=== PATIENT | male | born 1990 | race Caucasian/White ===

== ENCOUNTER 2020-11-29 19:50 | Emergency (ER) | payer MEDICAID ==
[2016-07-18 07:45] VITALS: BP 121/58
[~2020-11-29] VITALS: Ht 182.9 cm; Wt 71.0 kg
[~2020-11-29 19:50] MED LIST: AZIT1PAC PO; IBUP800T19 PO; SULF1TAB24 PO
--- NOTE | 2020-11-29 20:07 | PHYS DOC ---
Past History Past Medical History: No Pertinent History Past Surgical History: No Surgical History Alcohol Use: Rarely Drug Use: Marijuana General Adult EDM: Chief Complaint: EYE PROBLEMS HPI: HPI: "... I was breaking up some sand stone.. with a sledge hammer.. for a patio.. Missed about 8:00.. but I chunk of the sand stone flew up and hit me in my Lt. eye...".. " It is still bugging me..." Patient is a 30 year old male who presents with above hx and complaints of injury to left eye this morning at 0800 hours. Patient was using sledgehammer to break up [place].. A piece fragmented and hit him and he left eye. Patient is visual acuity is 20/20 right eye 20/40 left eye and 20/20 both eyes. Patient has obvious abrasion left lower quadrant of cornea. Fluorescein uptake noted. Extraocular muscles intact. No consensual pain with light. Slight flare. No limbus injection. Patient tetanus is up-to-date. No recent travel. No history of significant ill contacts. Normally wears protective lenses when working but not today. No history immunosuppression Review of Systems: Review of Systems: Constitutional: Denies fever or chills Eyes: Denies change in visual acuity. The patient complaint left eye injury HENT: Denies nasal congestion or sore throat Respiratory: Denies cough or shortness of breath Cardiovascular: Denies chest pain or edema GI: Denies abdominal pain, nausea, vomiting, bloody stools or diarrhea : Denies dysuria Musculoskeletal: Denies back pain or joint pain Integument: Denies rash Neurologic: Denies headache, focal weakness or sensory changes Endocrine: Denies polyuria or polydipsia Lymphatic: Denies swollen glands Psychiatric: Denies depression or anxiety Family History: Family History: Noncontributory Current Medications: Current Meds: See nursing for home meds Allergies: Allergies: Allergies Coded Allergies Type Severity Reaction Last Updated Verified Penicillins Allergy Unknown 03/04/14 No Physical Exam: PE: Constitutional: Well developed, well nourished, mild distress, non-toxic appearance. [] HENT: Normocephalic, atraumatic, bilateral external ears normal, oropharynx moist, no oral exudates, nose normal. [] Eyes: PERRLA, EOMI, conjunctiva normal, no discharge. [] Except findings in left eye as per HPI Neck: Normal range of motion, no tenderness, supple, no stridor. [] Cardiovascular:Heart rate regular rhythm, no murmur [] Lungs & Thorax: Bilateral breath sounds to apex auscultation [] Abdomen: Bowel sounds normal, soft, no tenderness, no masses, no pulsatile masses. [] Skin: Warm, dry, no erythema, no rash. [] Back: No tenderness, no CVA tenderness. [] Extremities: No tenderness, no cyanosis, no clubbing, ROM intact, no edema. [] Neurologic: Alert and oriented X 3, normal motor function, normal sensory functi on, no focal deficits noted. [] Psychologic: Affect normal, judgement normal, mood normal. [] EKG: EKG: [] Radiology/Procedures: Radiology/Procedures: [] Heart Score: C/O Chest Pain: N/A Risk Factors: Risk Factors: DM, Current or recent (<one month) smoker, HTN, HLP, family history of CAD, obesity. Risk Scores: Score 0 - 3: 2.5% MACE over next 6 weeks - Discharge Home Score 4 - 6: 20.3% MACE over next 6 weeks - Admit for Clinical Observation Score 7 - 10: 72.7% MACE over next 6 weeks - Early Invasive Strategies Course & Med Decision Making: Course & Med Decision Making Pertinent Labs and Imaging studies reviewed. (See chart for details) Do not rub eyes. Take Tylenol and ibuprofen for pain. Follow-up primary care. Follow-up with surgical garment inspector. Use a very small amount erythromycin ointment 4 times a day. May use Toradol eyedrops 4 times a day for pain. Return if any concerns. Must follow up. Impression: 1. Lt. Cornea Abrasion [] Dragon Disclaimer: Dragon Disclaimer: This electronic medical record was generated, in whole or in part, using a voice recognition dictation system. Departure Departure: Referrals: PCP,NO (PCP) Rodney Disclaimer This chart was dictated in whole or in part using Voice Recognition software in a busy, high-work load, and often noisy Emergency Department environment. It may contain unintended and wholly unrecognized errors or omissions. VITOR RAINEY MD Nov 29, 2020 20:07
[2020-11-29] MEDS: ERYTHROMYCIN 0.5% OPHTH OINTMENT 1GM TUBE. OS ONE (20:15)
[2020-11-29] MEDS: KETOROLAC TROMETHAMINE 0.5% OPHTH SOLUTION BOTTLE. OS ONE (20:15)
[2020-11-29] MEDS: FLUORESCEIN 1MG EYE STRIP. OU ONE (20:15)
[2020-11-29] MEDS: TETRACAINE 0.5% OPHTH SOLUTION 4ML BOTTLE. OU ONE (20:15)
[2020-11-29] MEDS: HYDROcodon/IBUPROFEN 7.5/200MG 1 TAB TABLET PO ONE (20:25)
== END 2020-11-29 20:37 | disposition home or self-care (01) ==
LOC: ER 19:50
DX: S05.02XA Injury of conjunctiva and corneal abrasion without foreign body, left eye, initial encounter (principal); F12.10 Cannabis abuse, uncomplicated; Z88.0 Allergy status to penicillin; X58.XXXA Exposure to other specified factors, initial encounter; Y93.89 Activity, other specified; Y92.89 Other specified places as the place of occurrence of the external cause; Y99.8 Other external cause status
CPT/HCPCS: 99284-25

== ENCOUNTER 2021-06-30 10:08 | Emergency (ER) | payer MEDICAID ==
[~2021-06-30] VITALS: Ht 182.9 cm; Wt 74.0 kg
[2021-06-30 10:18] VITALS: BP 143/105
--- NOTE | 2021-06-30 10:30 | PHYS DOC ---
Past History Past Medical History: No Pertinent History (CHRISTINA TORRES APRN) Past Surgical History: No Surgical History (CHRISTINA TORRES APRN) Alcohol Use: None Drug Use: Marijuana (CHRISTINA TORRES APRN) General Adult EDM: Chief Complaint: PAIN ON URINATION HPI: HPI: Patient is a 31-year-old male who presents to the emergency department for a 1 week history of dysuria and urinary frequency. Patient also reports it feels like he cannot fully empty his bladder. Patient has a history of one UTI in the past. He denies any kidney issues. He denies any nausea, vomiting, diarrhea, abdominal pain, fevers, urethral discharge, hematuria. (CHRISTINA TORRES APRN) Review of Systems: Review of Systems: Constitutional: negative unless reported in HPI Eyes: negative unless reported in HPI HENT: negative unless reported in HPI Respiratory: negative unless reported in HPI Cardiovascular: negative unless reported in HPI GI: negative unless reported in HPI : negative unless reported in HPI Musculoskeletal: negative unless reported in HPI Integument: negative unless reported in HPI Neurologic: negative unless reported in HPI Endocrine: negative unless reported in HPI Lymphatic: negative unless reported in HPI Psychiatric: negative unless reported in HPI (CHRISTINA TORRES APRN) Allergies: Allergies: Allergies Coded Allergies Type Severity Reaction Last Updated Verified Penicillins Allergy Unknown 03/04/14 No (CHRISTINA TORRES APRN) Physical Exam: PE: Constitutional: Well developed, well nourished, no acute distress, non-toxic appearance. [] HENT: Normocephalic, atraumatic, bilateral external ears normal, oropharynx moist, no oral exudates, nose normal. [] Eyes: PERRL, EOMI, conjunctiva normal, no discharge. [] Neck: Normal range of motion, no tenderness, supple, no stridor. [] Cardiovascular:Heart rate regular rhythm, no murmur [] Lungs & Thorax: Bilateral breath sounds clear to auscultation [] Abdomen: Bowel sounds normal, soft, no tenderness, no masses, no pulsatile masses. [] Skin: Warm, dry, no erythema, no rash. [] Back: No tenderness, no CVA tenderness. [] Extremities: No tenderness, no cyanosis, no clubbing, ROM intact, no edema. [] Neurologic: Alert and oriented X 3, normal motor function, normal sensory function, no focal deficits noted. [] Psychologic: Affect normal, judgement normal, mood normal. [] (CHRISTINA TORRES APRN) Current Patient Data: Labs: Laboratory Tests Test 06/30/21 10:17 Urine Collection Type Unknown Urine Color Yellow Urine Clarity Cloudy Urine pH 5.5 Urine Specific [place] 1.020 Urine Protein Neg Urine Glucose (UA) Neg mg/dL Urine Ketones (Stick) Neg mg/dL Urine Blood Neg Urine Nitrite Neg Urine Bilirubin Neg Urine Urobilinogen Dipstick 1.0 mg/dL Urine Leukocyte Esterase Small Urine RBC 1-2 /HPF Urine WBC >40 /HPF Urine Squamous Epithelial Cells Few /LPF Urine Bacteria Many /HPF Vital Signs: Vital Signs Date Time Temp Pulse Resp B/P (MAP) Pulse Ox O2 Delivery O2 Flow Rate FiO2 06/30/21 10:18 98.0 105 18 143/105 (118) 97 Room Air (CHRISTINA TORRES APRN) EKG: EKG: [] (CHRISTINA TORRES APRN) Radiology/Procedures: Radiology/Procedures: [] (CHRISTINA TORRES APRN) Heart Score: C/O Chest Pain: N/A Risk Factors: Risk Factors: DM, Current or recent (<one month) smoker, HTN, HLP, family hi story of CAD, obesity. Risk Scores: Score 0 - 3: 2.5% MACE over next 6 weeks - Discharge Home Score 4 - 6: 20.3% MACE over next 6 weeks - Admit for Clinical Observation Score 7 - 10: 72.7% MACE over next 6 weeks - Early Invasive Strategies (CHRISTINA TORRES APRN) Course & Med Decision Making: Course & Med Decision Making Pertinent Labs and Imaging studies reviewed. (See chart for details) Patient presents to the emergency department with dysuria and urinary frequency. Patient states "feels like I have a UTI". Patient has a history of one UTI in the past. Work-up in the ER consisted of urinalysis and gonorrhea chlamydia testing although he is not having any urethral discharge. Patient's urinalysis did show urinary tract infection. He will be treated with an antibiotic. Patient is allergic to penicillins but cannot tell me if he can tolerate cephalosporins. Gonorrhea and Chlamydia testing is pending and patient will be notified of those results when they become available. He has no concern for STDs and has no symptoms. Patient advised to increase his fluids and avoid bladder irritants. I discussed with patient all findings and diagnostic testing as well as the need to follow-up with PCP for further evaluation and treatment or return to the ER if any new or worsening symptoms. Strict return precautions were also discussed at length. Patient voiced understanding and agreement with the plan. Patient is hemodynamically stable at the time of disposition. (CHRISTINA TORRES APRN) Dragon Disclaimer: Dragon Disclaimer: This electronic medical record was generated, in whole or in part, using a voice recognition dictation system. (CHRISTINA TORRES APRN) Departure Departure: Impression: Primary Impression: Urinary tract infection Qualified Codes: N30.00 - Acute cystitis without hematuria Disposition: HOME / SELF CARE / HOMELESS Condition: GOOD Referrals: PCP,NO (PCP) Patient Instructions: Urinary Tract Infection Additional Instructions: You were seen in the emergency department for dysuria and urinary frequency. Your urinalysis did show an infection which will be treated with an antibiotic. Please start and finish the antibiotic completely. Increase your fluids and avoid any bladder irritants like caffeine, sugary beverages and alcohol. We also tested you in the emergency department today for gonorrhea and chlamydia and you will be notified of those results when they become available in approximately 2 days. Please abstain from sexual intercourse until you receive these results if you have any concern for STDs. Please follow-up with your primary care provider tomorrow regarding your emergency department visit. Return to the emergency department if you develop worsening of your symptoms, severe back pain, severe abdominal pain, intractable nausea or vomiting, high fevers refractory to treatment. Scripts Ciprofloxacin Hcl (CIPROFLOXACIN HCL) 500 Mg Tablet 1 TAB PO BID for uti for 7 Days, #14 TAB 0 Refills Prov: CHRISTINA TORRES APRN 06/30/21 Attending Signature Attending Signature I have reviewed the PA/MUSHROOM CULTIVATOR's note and plan of care. I was available for consultation as needed during the patient's visit in the emergency department. I agree with the clinical impression, plan, and disposition. (JOYCE MULLINS DO) CHRISTINA TORRES APRN Jun 30, 2021 10:29 JOYCE MULLINS DO Jun 30, 2021 21:37
[2021-06-30 11:19] LABS: BACTERIA,URINE MANY /HPF (0-FEW); BILIRUBIN,URINE NEG (NEG); CLARITY,URINE CLOUDY; COLOR,URINE YELLOW; GLUCOSE,URINE NEG (NEG); NITRITE,URINE NEG (NEG); SQUAMOUS EPITHELIAL CELL,UR FEW /LPF; WBC,URINE >40 /HPF (0-4)
[2021-06-30] MEDS ORDERED: CIPR500T2 PO (11:31)
== END 2021-06-30 11:38 | disposition home or self-care (01) ==
LOC: ER 10:08
DX: N30.00 Acute cystitis without hematuria (principal); Z88.0 Allergy status to penicillin
CPT/HCPCS: 36415; 81001; 87077; 87086; 87186; 87491; 87591; 99283; 99284